=== PATIENT | male | born 1985 | race Caucasian/White ===

== ENCOUNTER 2017-03-17 20:33 | Emergency (ER) | payer OTHER ==
[2017-03-17 20:39] VITALS: TEMP 97.7
[2017-03-17] MEDS ORDERED: HYDROCODONE/APAP 5/325 TAB PO ONE (21:10)
[2017-03-17] MEDS ORDERED: IBUPROFEN 600 MG TAB PO ONE (21:10)
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
[2017-03-17] MEDS ORDERED: HYDROCOD/APAP 5/325 PREPACK#6 BTL TAKEHOME ONE (21:45)
[2017-03-17 22:07] VITALS: BP 144/92; PULSE 61; RESP 16; O2SAT 96
== END 2017-03-17 22:06 | disposition home or self-care (01) ==
DX: S43.102A Unspecified dislocation of left acromioclavicular joint, initial encounter (principal); V18.0XXA Pedal cycle driver injured in noncollision transport accident in nontraffic accident, initial encounter; Y99.8 Other external cause status; Y93.55 Activity, bike riding